=== PATIENT | female | born 1950 | race Caucasian/White ===

== ENCOUNTER 2018-01-17 07:05 | Day surgery (SDC) | payer OTHER, BC ==
[2018-01-16 10:45] VITALS: BMI 41.1
[2018-01-17] MEDS ORDERED: PROPOFOL 20 ML ONE ×2 (08:03)
[2018-01-17 08:32] VITALS: TEMP 97.7
[2018-01-17 09:47] VITALS: BP 142/67; PULSE 63
--- NOTE | 2018-01-20 14:36 | PATH ---
Surgical Pathology Report Patient Name: PRICILLA CISNEROS [facility]. Rec. #: [id number] /Age/Gender: 1950 (Age: 67) / F Account: [id number] Location: [facility]-ENDOSCOPY Taken: 01/17/2018 Received: 01/17/2018 Reported: 01/20/2018 Physicians: Mary Lomeli M.D. Specimen(s) Received BX-RECTAL POLYP Clinical History Adenoma surveillance Postoperative diagnosis: Diverticulosis, polyps Final Diagnosis RECTUM, POLYPS, BIOPSY: HYPERPLASTIC POLYP(S). Electronically Signed Claudia Farah M.D. Gross Description Received in formalin, labeled "biopsy rectal polyps" are 2 wilson, irregular portions of soft tissue measuring 0.4 and 0.5 cm. in greatest dimension. The specimens are submitted in toto in one cassette. /01/17/201801/17/2018
== END 2018-01-17 09:47 | disposition home or self-care (01) ==
LOC: JASU-ENDO 07:05
PROVIDERS: ATTEND Internal Medicine Gastroenterology
PROC: 0DBP8ZX Excision of Rectum, Via Natural or Artificial Opening Endoscopic, Diagnostic (ICD-10-PCS; principal; 2018-01-17 08:00)
DX: Z86.010 Personal history of colon polyps (principal); K62.1 Rectal polyp; K64.8 Other hemorrhoids; K57.30 Diverticulosis of large intestine without perforation or abscess without bleeding
CPT/HCPCS: 88305-TC

== ENCOUNTER 2023-07-05 04:45 | Day surgery (SDC) | payer OTHER, BC ==
[2023-07-03 16:15] VITALS: BMI 37.8
[2023-07-05 14:03] VITALS: BP 126/62; PULSE 65; RESP 16; TEMP 98
== END 2023-07-05 13:30 | disposition home or self-care (01) ==
LOC: JASU-ENDO 04:45
PROVIDERS: ATTEND Internal Medicine Gastroenterology
PROC: 0DBN8ZX Excision of Sigmoid Colon, Via Natural or Artificial Opening Endoscopic, Diagnostic (ICD-10-PCS; principal; 2023-07-05 12:00)
DX: Z12.11 Encounter for screening for malignant neoplasm of colon (principal); D12.5 Benign neoplasm of sigmoid colon; K64.8 Other hemorrhoids; K57.30 Diverticulosis of large intestine without perforation or abscess without bleeding
CPT/HCPCS: 82962; 88305-TC

== ENCOUNTER 2023-12-25 04:33 | Day surgery (SDC) | payer OTHER, BC ==
[2023-12-24 09:10] VITALS: BMI 37.0
[2023-12-25 10:32] VITALS: RESP 18
[2023-12-25 10:34] VITALS: TEMP 97.1
[2023-12-25 11:07] VITALS: BP 139/60; PULSE 63
== END 2023-12-25 11:04 | disposition home or self-care (01) ==
LOC: JASU-ENDO 04:33
PROVIDERS: ATTEND Internal Medicine Gastroenterology
PROC: 0DB78ZX Excision of Stomach, Pylorus, Via Natural or Artificial Opening Endoscopic, Diagnostic (ICD-10-PCS; principal; 2023-12-25 10:00)
DX: K29.50 Unspecified chronic gastritis without bleeding (principal); K29.40 Chronic atrophic gastritis without bleeding; K25.9 Gastric ulcer, unspecified as acute or chronic, without hemorrhage or perforation; K75.89 Other specified inflammatory liver diseases; I10 Essential (primary) hypertension; E11.9 Type 2 diabetes mellitus without complications; Z79.84 Long term (current) use of oral hypoglycemic drugs
CPT/HCPCS: 82962; 88305-TC; 88342-TC